=== PATIENT | male | born 1960 | race Caucasian/White ===

== ENCOUNTER → 2018-09-09 | Outpatient (CLI) | payer MEDICARE ==
[2014-06-25 08:50] VITALS: BP 143/89
--- NOTE | 2018-09-09 15:27 | RAD ---
KNEE RIGHT 2V, KNEE STANDING BILAT AP History: Knee pain. 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 There are multiple small foci of calcification along the medial joint line. There is bone defect at the medial femoral condyle along the metal interface has a chronic and well-defined appearance. Soft tissue calcifications along the medial joint line. Very mild ill-defined lucency about the tibial stem and the femoral stem particularly as compared with the contralateral knee. Question significance, however, no overtly aggressive bone destruction or osteolysis. No evidence of acute fracture. AP image of the left knee also demonstrates femorotibial arthroplasty. IMPRESSION: 1. Mild patchy osteolysis about the femoral and tibial components of the right knee replacement, of questionable significance. Loosening or infection could be considered, if clinically suspected, but not definitive. 2. Chronic appearing bone defect or bone loss at the medial right femoral condyle at the bone metal interface. 3. Severe soft tissue swelling anterior to the right knee, potential causes include soft tissue infection or hematoma. Electronically signed by: Delon Jara MD (09/09/2018 3:25 PM) [id number]
== END | disposition home or self-care (01) ==
LOC: DXRAD 14:40
PROVIDERS: ATTEND Orthopaedic Surgery
DX: M89.561 Osteolysis, right lower leg (principal); M25.861 Other specified joint disorders, right knee; R22.41 Localized swelling, mass and lump, right lower limb
CPT/HCPCS: 73560; 73565

== ENCOUNTER → 2020-07-09 | Outpatient (CLI) | payer MEDICARE ==
[2014-06-25 08:50] VITALS: BP 143/89
--- NOTE | 2020-07-09 09:58 | RAD ---
EXAM: Renal sonogram. HISTORY: Urinary retention. Incontinence. TECHNIQUE: Sonographic imaging of the kidneys and bladder was performed. COMPARISON: 08/30/2015. FINDINGS: The kidneys are normal in size. There is no hydronephrosis. There is a 1.6 cm simple appear ing right renal cyst. No solid renal lesion is seen. The prevoid bladder volume is 167 cc. The post v oid bladder volume is 43 cc. There is incidental hepatic steatosis. IMPRESSION: 1. 1.6 cm simple right renal cyst. Follow-up is not routinely recommended for simple renal cysts. 2. Post void bladder residual of 43 cc. Electronically signed by: Gemma Burgos MD (07/09/2020 9:56 AM) [id number]
== END ==
LOC: US 09:03
PROVIDERS: ATTEND Family Medicine
DX: N28.1 Cyst of kidney, acquired (principal); R33.9 Retention of urine, unspecified
CPT/HCPCS: 76770